=== PATIENT | male | born 1950 | race American Indian/Alaskan Native ===

== ENCOUNTER 2018-03-10 17:42 | Emergency (ER) | payer MEDICARE ==
[2018-03-10] MEDS ORDERED: TYLENOL PO ONE (18:01)
--- NOTE | 2018-03-10 19:35 | Emergency Department Report ---
ED General Adult HPI - General Chief complaint: Weakness Stated complaint: SHIVERING/LEGS FEEL HEAVY/VOMITING Source: patient Mode of arrival: Wheelchair Limitations: No Limitations - History of Present Illness Initial comments: [id number] -[place] male presents to the ER with complaints of generalized weakness. Patient reports that he's had chills and body aches 3 days but today has gotten worse. Patient reports that he had vomited once today. He complains of leg and body aches. Patient reports that he has a history of prostate cancer and is still in treatment. Patient reports he is a diabetic with hypertension but is not on insulin. -: This morning Location: lower extremity Severity scale (0 -10): 5 Quality: aching Associated Symptoms: fever/chills. denies: cough - Related Data Previous Rx's Medication Instructions Recorded Last Taken Type levoFLOXacin [Levaquin TAB] 750 mg PO QDAY 7 Days #7 tablet 03/10/18 Unknown Rx Allergies Allergy/AdvReac Type Severity Reaction Status Date / Time amlodipine besylate Allergy Itching Unverified 10/16/13 08:23 [From [facility]] lisinopril Allergy Swelling Unverified 10/16/13 08:22 ED Review of Systems ROS: Stated complaint: SHIVERING/LEGS FEEL HEAVY/VOMITING Other details as noted in HPI ED Past Medical Hx - Past Medical History Previous Medical History?: Yes Hx Hypertension: Yes Hx Diabetes: Yes Additional medical history: enlarged prostate, gout - Surgical History Past Surgical History?: No - Social History Smoking Status: Never Smoker Substance Use Type: None - Medications Home Medications: Home Medications Medication Instructions Recorded Confirmed Last Taken Type levoFLOXacin [Levaquin TAB] 750 mg PO QDAY 7 Days #7 tablet 03/10/18 Unknown Rx ED Physical Exam - General Limitations: No Limitations General appearance: alert, in no apparent distress - Head Head exam: Present: atraumatic, normocephalic - Eye Eye exam: Present: normal appearance - ENT ENT exam: Present: mucous membranes moist - Neck Neck exam: Present: normal inspection - Respiratory Respiratory exam: Present: normal lung sounds bilaterally. Absent: respiratory distress - Cardiovascular Cardiovascular Exam: Present: regular rate, normal rhythm. Absent: systolic murmur, diastolic murmur, rubs, gallop - GI/Abdominal GI/Abdominal exam: Present: soft, normal bowel sounds - Rectal Rectal exam: Present: deferred - Extremities Exam Extremities exam: Present: normal inspection - Back Exam Back exam: Present: normal inspection - Neurological Exam Neurological exam: Present: alert, oriented X3 - Psychiatric Psychiatric exam: Present: normal affect, normal mood - Skin Skin exam: Present: warm, dry, intact, normal color. Absent: rash ED Course Vital Signs 03/10/18 03/10/18 03/10/18 17:56 18:28 21:45 Temperature 102 F H 99.6 F Pulse Rate 87 87 86 Respiratory 16 18 18 Rate Blood Pressure 125/73 Blood Pressure 128/68 [Left] O2 Sat by Pulse 95 95 Oximetry ED Medical Decision Making - Lab Data Result diagrams: 03/10/18 20:05 03/10/18 20:05 - Radiology Data Radiology results: report reviewed FINAL REPORT PROCEDURE: XR CHEST ROUTINE 2V TECHNIQUE: PA and lateral chest radiographs were obtained. CPT 31679 HISTORY: chest pain flulike symptoms COMPARISON: No prior studies are available for comparison. FINDINGS: Heart: Mild enlargement. Mediastinum/Vessels: Normal. Lungs/Pleural space: Normal. Bony thorax: No acute osseous abnormality. Other: IMPRESSION: No focal infiltrate or edema. Mild cardiac enlargement. Transcribed By: BRP Dictated By: SAJI FIELDS MD Electronically Authenticated By: SAJI FIELDS MD Signed Date/Time: 03/10/182058 DD/ 00 TD/TT: 03/10/182100 - Medical Decision Making Patient has been evaluated by this provider in fast track. CBC CMP and chest x-ray EKG urinalysis has been ordered. Urinalysis shows patient has a urinary tract infection. We will place patient on Levaquin 750 mg by mouth daily for 7 days patient's increase his water intake and to follow up with his primary care provider on Tuesday. Critical care attestation.: If time is entered above; I have spent that time in minutes in the direct care of this critically ill patient, excluding procedure time. ED Disposition Clinical Impression: UTI (urinary tract infection) Qualifiers: Urinary tract infection type: acute cystitis Hematuria presence: with hematuria Qualified Code(s): N30.01 - Acute cystitis with hematuria Disposition: TO HOME OR SELFCARE Is pt being admited?: No Does the pt Need Aspirin: No Condition: Stable Instructions: Urinary Tract Infection in Men (ED) Additional Instructions: Please complete antibiotics as prescribed. Please increase her water intake by 2-3 L daily. It's very important for her to follow up with her primary care doctor on Tuesday. Prescriptions: levoFLOXacin [Levaquin TAB] 750 mg PO QDAY 7 Days #7 tablet Referrals: SAMM KABA MD [Primary Care Provider] - 3-5 Days Forms: Accompanied Note
[2018-03-10 20:33] LABS: Hematocrit 38.1 % (35.5-45.6); Hemoglobin 12.9 gm/dl (11.8-15.2); Mean Corpuscular HGB Conc 34 % (32-34); Mean Corpuscular Volume 88 fl (84-94); Platelet Count 139 K/mm3 (140-440); Red Blood Count 4.32 M/mm3 (3.65-5.03); Red Cell Distribution Width 13.9 % (13.2-15.2)
--- NOTE | 2018-03-10 20:59 | XRay Report ---
FINAL REPORT PROCEDURE: XR CHEST ROUTINE 2V TECHNIQUE: PA and lateral chest radiographs were obtained. CPT 92754 HISTORY: chest pain flulike symptoms COMPARISON: No prior studies are available for comparison. FINDINGS: Heart: Mild enlargement. Mediastinum/Vessels: Normal. Lungs/Pleural space: Normal. Bony thorax: No acute osseous abnormality. Other: IMPRESSION: No focal infiltrate or edema. Mild cardiac enlargement.
[2018-03-10 21:04] LABS: Alanine Aminotransferase 8 units/L (7-56); Albumin 3.8 g/dL (3.9-5); BUN/Creatinine Ratio 8; Blood Urea Nitrogen 9 mg/dL (9-20); Calcium 8.6 mg/dL (8.4-10.2); Hemolysis Index 7
[2018-03-10 21:19] LABS: Basophils % (Manual) 0 % (0.0-1.8); Total Cells Counted 100
[2018-03-10 21:20] LABS: Platelet Estimate Consistent w Auto; RBC Morphology Normal
[2018-03-10 21:47] VITALS: BP 128/68
[2018-03-10 22:14] LABS: Bacteria,Urine 4+ /HPF (Negative); Bilirubin,Urine NEG (Negative); Blood,Urine LG (Negative); Color,Urine Yellow (Yellow); Mucus,Urine FEW /HPF; Urobilinogen,Urine < 2.0 mg/dL (<2.0)
[2018-03-10 22:20] LABS: RBC,Urine > 182.0 /HPF (0.0-6.0)
== END 2018-03-10 23:03 | disposition home or self-care (01) ==
LOC: ED 17:42
DX: N30.01 Acute cystitis with hematuria (principal); I10 Essential (primary) hypertension; E11.9 Type 2 diabetes mellitus without complications; Z88.8 Allergy status to other drugs, medicaments and biological substances
CPT/HCPCS: 36415; 71046; 80053; 81001; 85007; 85025; 87400; 93005; 93010; 99284